=== PATIENT | male | born 1965 | race Caucasian/White ===

== ENCOUNTER 2023-06-05 11:22 | Emergency (ER) | payer OTHER, SELFPAY ==
[2023-06-05] VITALS (18 sets, daily range): BP systolic 94–134; BP diastolic 53–87; PULSE 85–95; RESP 12–20; TEMP 36.4; O2SAT 92–97
--- NOTE | 2023-06-05 11:29 | ECG_ITS ---
Measurements Intervals [place] Rate: 82 P: 62 MT: 157 QRS: 44 QRSD: 92 T: 51 QT: 379 QTc: 443 Interpretive Statements SINUS RHYTHM POSSIBLE LEFT ATRIAL ENLARGEMENT BORDERLINE ECG NO PREVIOUS ECG AVAILABLE FOR COMPARISON Electronically Signed On 06-05-2023 16:38:48 [employer] by Romel Batista D.O.
[2023-06-05 11:48] LABS: Basophils Percent Auto 0.5 % (0.2-1.2); Eosinophils Absolute Auto 0.2 K/mm3 (0-0.3); Eosinophils Percent Auto 2.4 % (0-4.4); Hematocrit 47.6 % (42.0-52.0); Hemoglobin 17.1 g/dL (14.0-18.0); Immature Granulocyte Absolute 0.03 K/mm3 (0.00-0.031); Immature Granulocyte Percent A 0.3 % (0-0.5); Lymphocytes Absolute Auto 3.56 K/mm3 (0.9-3.2); Lymphocytes Percent Auto 40.1 % (18.3-44.2); Mean Corpuscular HGB Conc 35.9 g/dl (32-36); Mean Corpuscular Hemoglobin 30.4 pg (26-34); Mean Corpuscular Volume 84.5 fl (80-100); Mean Platelet Volume 8.8 fl (7.4-10.4); Monocytes Absolute Auto 0.4 K/mm3 (0.1-0.6); Neutrophils Absolute Auto 4.6 K/mm3 (1.3-6.7); Neutrophils Percent Auto 51.7 % (45.5-73.1); Platelet Count Result 242 k/mm3 (150-375); Red Blood Count 5.63 M/mm3 (4.6-6.20); Red Cell Distribution Width 13.2 % (11.5-14.5); White Blood Count 8.9 K/mm3 (4.5-10.0)
[2023-06-05 12:03] LABS: Alanine Aminotransferase 26 U/L (6-50); Albumin Level 3.8 g/dL (3.5-5.1); Alkaline Phosphatase 65 U/L (38-126); Anion Gap 11 mmol/L (8-16); Aspartate Amino Transferase 26 U/L (17-59); Bilirubin,Total 0.4 mg/dL (0.2-1.3); Blood Urea Nitrogen 17 mg/dL (9-20); Calcium 8.5 mg/dL (8.4-10.2); Carbon Dioxide 22 mmol/L (22-30); Chloride 102 mmol/L (98-107); Estimated CRCL calculation 55 ml/min; Estimated Glomerular Filt Rate > 60; Glucose 151 mg/dL (65-110); Potassium 3.1 mmol/L (3.4-5.0); Sodium 135 mmol/L (137-145)
--- NOTE | 2023-06-05 12:20 | ED.SYNCOPE ---
HPI - Syncope General Chief Complaint: Syncope Stated Complaint: ?syncope/?hungover/?took aleve but has an allergy Time Seen by Provider: 06/05/23 11:41 Source: patient and family (brother) History of Present Illness HPI narrative: This is a 58 year old male who presents after an episode of near syncope versus syncope. Patient was at a [employer] and admits to drinking alcohol. He awoke feeling unwell at 10am. He drank some coffee and had an Aleve. Shortly after taking the Aleve however, his arms and hands became red and itchy and were swelling and he remembered that he had previously had a similar reaction to Naproxen. Given he felt like he was having an allergic reaction, he took Benadryl. He then felt lightheaded. He was feeling unwell while he went to the bathroom (defecated and voided) and then stood and walked into another room where he continued to feel unwell. Brother notes that he staggered across the room. He sat down at the table and he denies losing consciousness but family states he was not responding to them and lost consciousness. He denies any chest pain/abdominal pain then or now. No shortness of breath. Underwent a stress test years ago but does not follow with a risk lead. Had a screening colonoscopy Tuesday. Related Data Allergies Allergy/AdvReac Type Severity Reaction Status Date / Time naproxen Allergy Itching Verified 06/05/23 11:29 [facility] Past Medical History Medical History (Updated 06/06/23 @ 10:51 by Gretchen Escudero MD) Encounter for screening colonoscopy 06/03/23 Social History Social History Alcohol intake: current Exam Const: General: healthy appearing, no acute distress and alert; No confusion, diaphoretic or ill appearing Nutritional Appearance: well nourished Orientation/consciousness: patient oriented x3 Limitations: no limitations HENMT: Head: normal to inspection, no contusions, no hematomas and no lacerations Mouth: Yes dry mucous membranes (tacky) Other: gross auditory acuity intact Eyes: Other: no scleral icterus Neck: Neck: normal visual inspection Chest: Chest palpation & inspection: normal inspection of the chest Resp: Effort & Inspection: normal respiratory effort, not labored, no retractions, not tachypneic and no use of accessory muscles Cardio: Rate: regular rate Rhythm: regular rhythm Other: 2+ radial pulses bilaterally GI: GI Palp: Yes Soft to palpation, No Tenderness to palpation present (GI) and No Guarding due to palpation present (GI) Skin: General skin exam: normal color, no jaundice and no pallor Wounds: no wounds Neuro: General: patient oriented x3, moves all extremities, no meningeal signs and no focal motor deficits Speech: normal speech Extrem: General: normal to inspection Other: no lower extremity edema Psych: Mental Status: mental status grossly normal Affect: normal affect, No Sad affect present and No Anxious affect present Attitude: not cooperative Course Vital Signs Vital signs: Vital Signs Temperature 97.6 F 06/05/23 11:21 Pulse Rate 91 06/05/23 11:21 Respiratory Rate 16 06/05/23 11:21 Blood Pressure 106/68 06/05/23 11:21 Pulse Oximetry 93 06/05/23 11:21 Oxygen Delivery Room Air 06/05/23 11:21 Temperature 97.6 F 06/05/23 11:21 Pulse Rate 91 06/05/23 13:31 Respiratory Rate 14 06/05/23 13:31 Blood Pressure 134/87 06/05/23 13:31 Pulse Oximetry 97 06/05/23 12:46 Oxygen Delivery Room Air 06/05/23 11:30 MDM - Syncope MDM Narrative Medical decision making narrative: Patient arrives after report of syncope though patient denies loss of consciousness. Patient had been drinking the night prior and awoke feeling unwell. Took Aleve but has an allergy to Naproxen and did start to have itchy/swollen hands for which he took Benadryl. Was able to defecate and void and walk to another room where he lockett
[2023-06-05] MEDS: POTASSIUM PHOS/SODIUM PHOS 250 MG TABLET PO (13:00)
[2023-06-05 13:33] LABS: Troponin I < 0.012 ng/mL (0.000-0.034)
== END 2023-06-05 14:29 | disposition home or self-care (01) ==
PROVIDERS: Physician Assistant; Emergency Provider Student in an Organized Health Care Education/Training Program
DX: R55 Syncope and collapse (principal); E86.0 Dehydration
CPT/HCPCS: 36415; 80053; 84484; 85025; 93005; 99284; A9270